=== PATIENT | male | born 1950 | race Two or more races ===

== ENCOUNTER 2023-04-15 16:22 | Emergency (ER) | payer OTHER ==
[~2023-04-15] VITALS: Ht 172.7 cm; Wt 96.6 kg
[2023-04-15] MEDS ORDERED: TAMS0.4C (16:34)
[2023-04-15 17:39] LABS: URINE APPEARANCE Clear; URINE BILIRRUBIN Negative (NEGATIVE); URINE BLOOD Large; URINE COLOR Yellow; URINE GLUCOSE Negative (NEGATIVE); URINE LEUKOCYTE Moderate; URINE NITRATE Negative
[2023-04-15 17:42] LABS: URINE BACTERIA 88.1 uL (0.0-1933); URINE EPITHELIAL CELLS 3.2 uL (0.0-38.8); URINE WBC 89.6 uL (0.0-23.2)
[2023-04-15 18:15] LABS: URINE PROTEIN 100 (NEGATIVE)
[2023-04-15] MEDS ORDERED: DUI500 PO (18:42)
== END 2023-04-15 19:14 | disposition home or self-care (01) ==
LOC: ER 16:22
PROVIDERS: General Practice
DX: R33.8 Other retention of urine (principal); N40.0 Benign prostatic hyperplasia without lower urinary tract symptoms; Z88.8 Allergy status to other drugs, medicaments and biological substances